=== PATIENT | female | born 1995 | race African-American/Black ===

== ENCOUNTER 2016-09-06 09:09 | Emergency (ER) | payer MEDICAID ==
[~2016-09-06] VITALS: Ht 144.8 cm; Wt 63.5 kg
[~2016-09-06 09:09] MED LIST: ACETAMINOPHEN-1 EAC1 ORAL; AMOXICILLIN500 MG PO; AUGMENTIN 875-1 EAC1 ORAL; BACTRIM-DS1 EA ORAL; CEPHALEXIN500 MG ORAL; CORTISPORIN EAR10 ML OTIC; FERROUS SULFAT325 MG ORAL; IBUPROFEN600 MG ORAL; NKM; NORCO 5-325 TA1 EACH ORAL; NORCO 5-325 TA1 EACH PO; PROVERA10 MG ORAL
--- NOTE | 2016-09-06 09:31 | Emergency Room Report ---
History of Present Illness General Chief Complaint: Lower Back Pain or Injury Source: Patient Present Illness [facility] Patient is a 21-year-old female presented after increased left-sided back pain. The patient reported having intermittent crampy pain to the left upper back and abdomen which radiated to her groin. She denied any vomiting. She denied any fever. Patient reported having some intermittent episodes of constipation she denied any diarrhea. She had not been having fever she denied dysuria or hematuria Allergies: Coded Allergies: No Known Allergies (Unverified , 10/17/14) Patient History Past Medical History: see triage record Last Menstrual Period: 08/2013- On Depo Now: No : 3 Para: 2 Reviewed Nursing Documentation: PMH: Agreed, PSxH: Agreed Nursing Documentation-PMH Past Medical History: No Stated History Review of Systems All Other Systems: negative except mentioned in HPI Physical Exam Vital Signs Date Time Temp Pulse Resp B/P Pulse Ox O2 Delivery O2 Flow Rate FiO2 09/06/16 09:10 98.6 85 16 129/82 98 Room Air General Appearance: well appearing, no apparent distress, alert, GCS 15, non- toxic Head: normocephalic, atraumatic ENT: hearing grossly normal, normal voice Neck: full range of motion, supple Respiratory: no respiratory distress, speaking full sentences Cardiovascular #1: normal inspection, normal peripheral pulses, regular rate, rhythm Gastrointestinal: normal inspection, normal bowel sounds, non tender, soft, no mass Genitourinary: CVA tenderness (L) Musculoskeletal: back normal, no calf tenderness Neurologic: normal inspection, alert, oriented x3, responsive, foreign broadcast specialist III-XII nml as tested, motor strength/tone normal, normal gait Psychiatric: mood/affect normal Skin: no rash Medical Decision Making Diagnostic Impression: Primary Impression: Low back pain ER Course Patient presented for low back pain.Differential diagnosis included but was not limited to herniated disc, cauda equina syndrome, abdominal aortic aneurysm, perforated ulcer, spinal epidural abscess, spinal stenosis, lumbar fracture, metastatic lesion, pyelonephritis. Because of complexity of patient's case laboratory testing was ordered. Patients urine does not appear infected. Patient was given Toradol for pain. was negative. The patient did not appear to require CT imaging at this time.The patient is advised to follow up with primary care doctor in 1-2 days. Patient is advised to return if any worsening condition or if any changes in status that are concerning. Labs Test 09/06/16 09:25 Urine Color Pale yellow Urine Appearance Clear Urine pH 5 (4.5-8.0) Urine Specific [place] 1.020 (1.005-1.035) Urine Protein Negative (NEGATIVE) Urine Glucose (UA) Negative (NEGATIVE) Urine Ketones Negative (NEGATIVE) Urine Occult Blood Negative (NEGATIVE) Urine Nitrite Negative (NEGATIVE) Urine Bilirubin Negative (NEGATIVE) Urine Urobilinogen Normal MG/DL (0.0-1.0) Urine Leukocyte Esterase Negative (NEGATIVE) Urine HCG, Qualitative Negative Urine Opiates Screen Negative (NEGATIVE) Urine Barbiturates Screen Negative (NEGATIVE) Phencyclidine (PCP) Screen Negative (NEGATIVE) Urine Amphetamines Screen Negative (NEGATIVE) Urine Benzodiazepines Screen Negative (NEGATIVE) Urine Cocaine Screen Negative (NEGATIVE) Urine Marijuana (THC) Screen Negative (NEGATIVE) Last Vital Signs Date Time Temp Pulse Resp B/P Pulse Ox O2 Delivery O2 Flow Rate FiO2 09/06/16 09:10 98.6 85 16 129/82 98 Room Air Status: improved Disposition: HOME, SELF-CARE Condition: Stable Lester Hein Sep 06, 2016 09:31
[2016-09-06 09:38] LABS: KETONES,URINE NEGATIVE (NEGATIVE); LEUKOCYTE ESTERASE ,URINE NEGATIVE (NEGATIVE); NITRITE,URINE NEGATIVE (NEGATIVE); PH,URINE 5 (4.5-8.0); PROTEIN,URINE NEGATIVE (NEGATIVE); UROBILINOGEN,URINE NORMAL MG/DL (0.0-1.0)
[2016-09-06 09:39] LABS: APPEARANCE,URINE CLEAR
[2016-09-06] MEDS ORDERED: Ketorolac 60mg Inj IM ONE (10:00)
[2016-09-06 10:30] VITALS: BP 129/82
[2016-09-06] MEDS ORDERED: IBUPROFEN600 MG ORAL (10:30)
[2016-09-06 10:38] VITALS: BP 129/82
== END 2016-09-06 10:38 | disposition home or self-care (01) ==
LOC: EMR 09:34
DX: M54.5 Low back pain (principal)
CPT/HCPCS: 80300; 81003; 81025; 96372; 99283

== ENCOUNTER 2016-10-09 11:22 | Emergency (ER) | payer MEDICAID ==
[~2016-10-09] VITALS: Ht 144.8 cm; Wt 65.3 kg
[2016-10-09 11:52] VITALS: BP 123/76
--- NOTE | 2016-10-09 12:26 | Emergency Room Report ---
History of Present Illness General Chief Complaint: Lower Back Pain or Injury Source: Patient Present Illness HPI The patient is a 21-year-old female presenting for left lower back pain which began 3 days prior. The patient states that the pain is a 5/10 dull ache it is worse with certain movements such as bending over. Pain is intermittent. Patient denies any radiating pain or numbness and tingling. The patient denies any back injury. The patient denies any other symptoms including nausea, vomiting, fever, chills, dysuria, hematuria, vaginal discharge, abdominal pain Allergies: Coded Allergies: No Known Allergies (Unverified , 10/17/14) Patient History Past Medical History: see triage record Pertinent Family History: none Last Menstrual Period: 03/2014 : 3 Para: 2 Reviewed Nursing Documentation: PMH: Agreed, PSxH: Agreed Nursing Documentation-PMH Past Medical History: No Stated History Review of Systems All Other Systems: negative except mentioned in HPI Physical Exam Vital Signs Date Time Temp Pulse Resp B/P Pulse Ox O2 Delivery O2 Flow Rate FiO2 10/09/16 11:28 98.4 107 16 123/76 98 Room Air Sp02 EP Interpretation: reviewed, normal General Appearance: no apparent distress, alert, GCS 15, non-toxic Head: normocephalic, atraumatic Eyes: bilateral eye PERRL, bilateral eye normal inspection ENT: normal pharynx, normal voice, uvula midline, moist mucus membranes, other - R ear cerumen impaction Neck: full range of motion, supple/symm/no masses Respiratory: chest non-tender, lungs clear, normal breath sounds, no wheezing, speaking full sentences Cardiovascular #1: regular rate, rhythm, no edema Musculoskeletal: normal inspection, back normal, gait/station normal, normal range of motion, tender - TTP over L paraspinous muscles Neurologic: alert, oriented x3, responsive, motor strength/tone normal, sensory intact, speech normal Psychiatric: judgement/insight normal, memory normal, mood/affect normal, no suicidal/homicidal ideation Skin: normal color, no rash, warm/dry, well hydrated Lymphatic: no adenopathy Medical Decision Making PA Attestation Dr. Sapp is my supervising physician. Patient management was discussed with my supervising physician Diagnostic Impression: Primary Impression: Muscle strain Additional Impression: Cerumen impaction ER Course The patient is a 21-year-old female presenting for left lower back pain which began 3 days prior. Patient also complains of right ear fullness Ddx considered include but not limited to sprain/strain, fracture, contusion, urinary tract infection, pyelonephritis, renal lithiasis Physical exam: Vitals within normal limits. Afebrile. No apparent distress HEENT: Right ear cerumen impaction only. Otherwise unremarkable. Back: Tenderness to palpation over left paraspinous muscles. No midline tenderness. Full active range of motion. Normal gait. SILT Abd is soft and non tender. Urinalysis unremarkable. No signs of infection. Negative The patient will be discharged home with a prescription for Motrin and Flexeril. Patient will use moist heat at home. The patient is also given a prescription for debrox. ER precautions are given Laboratory Tests Test 10/09/16 12:30 Urine Color Yellow Urine Appearance Clear Urine pH 5 (4.5-8.0) Urine Specific [place] 1.015 (1.005-1.035) Urine Protein Negative (NEGATIVE) Urine Glucose (UA) Negative (NEGATIVE) Urine Ketones Negative (NEGATIVE) Urine Occult Blood Negative (NEGATIVE) Urine Nitrite Negative (NEGATIVE) Urine Bilirubin Negative (NEGATIVE) Urine Urobilinogen Normal MG/DL (0.0-1.0) Urine Leukocyte Esterase Negative (NEGATIVE) Urine HCG, Qualitative Negative Lab Results Impression unremarkable Last Vital Signs Date Time Temp Pulse Resp B/P Pulse Ox O2 Delivery O2 Flow Rate FiO2 10/09/16 11:52 98.4 72 16 123/76 98 Room Air Status: improved Disposition: HOME, SELF-CARE Condition: Improved Scripts Carbamide Peroxide (DEBROX) 15 Ml Drops 10 DROP RIGHT EAR TWICE A DAY for 4 Days, ML 0 Refills Prov: JASMYNE LAURA P.A. 10/09/16 Cyclobenzaprine Hcl* (FLEXERIL*) 10 Mg Tablet 10 MG ORAL THREE TIMES A DAY, #15 TAB Prov: ARCHIEANANGIEY P.A. 10/09/16 Ibuprofen* (MOTRIN*) 600 Mg Tablet 600 MG ORAL Q8H Y for For Pain, #30 TAB 0 Refills Prov: TERLILIBETHANJASMYNE P.A. 10/09/16 Referrals: NOT CHOSEN [facility]/,REFERRING (PCP) JASMYNE LAURA P.AGail Oct 09, 2016 12:26
[2016-10-09 12:50] LABS: APPEARANCE,URINE CLEAR; KETONES,URINE NEGATIVE (NEGATIVE); LEUKOCYTE ESTERASE ,URINE NEGATIVE (NEGATIVE); NITRITE,URINE NEGATIVE (NEGATIVE); PH,URINE 5 (4.5-8.0); PROTEIN,URINE NEGATIVE (NEGATIVE); UROBILINOGEN,URINE NORMAL MG/DL (0.0-1.0)
[2016-10-09] MEDS ORDERED: IBUPROFEN600 MG ORAL (13:04)
[2016-10-09] MEDS ORDERED: CYCLOBENZAPRINE10 MG ORAL (13:04)
[2016-10-09] MEDS ORDERED: DEBROX15 M1 RIGHT EAR (13:09)
[2016-10-09 13:15] VITALS: BP 126/76
[2016-10-09 13:17] VITALS: BP 126/76
== END 2016-10-09 13:18 | disposition home or self-care (01) ==
LOC: EMR 12:00
DX: T14.8 Other injury of unspecified body region (principal); H61.20 Impacted cerumen, unspecified ear; M54.5 Low back pain
CPT/HCPCS: 81003; 81025; 99284

== ENCOUNTER 2017-05-12 15:33 | Emergency (ER) | payer MEDICAID ==
[~2017-05-12] VITALS: Ht 144.8 cm; Wt 65.3 kg
[~2017-05-12 15:33] MED LIST changes: +CYCLOBENZAPRINE10 MG ORAL; +DEBROX15 M1 RIGHT EAR
[2017-05-12 15:38] VITALS: BP 132/76
--- NOTE | 2017-05-12 15:52 | Emergency Room Report ---
History of Present Illness General Chief Complaint: Vaginal Source: Patient Present Illness HPI 21 YO Female presents to the ED c/o vaginal bleeding: x 57 days reports going through 3 super absorbency pads daily. pt. reports hx of previous prolonged vaginal bleeding normally lasting 10-12 days. pt. states this is the longest length of consistent bleeding. denies OCP's. reports stopped Depo shot in August. denies abdominal pain, N/V/D/F, Chills, weakness. denies hx of fibroids , dyspareunia or std's. She reports requiring provera in the past to control heavy menstrual cycles. Denies CP, Palpitations, LOC, AMS, dizziness, Changes in Vision, Sensation, paresthesias, or a sudden severe headache. Allergies: Coded Allergies: No Known Allergies (Unverified , 10/17/14) Patient History Past Medical History: see triage record Past Surgical History: none Pertinent Family History: none Last Menstrual Period: on cycle now Now: No : 3 Para: 2 Immunizations: UTD Reviewed Nursing Documentation: PMH: Agreed, PSxH: Agreed Nursing Documentation-PMH Past Medical History: No Stated History Review of Systems All Other Systems: negative except mentioned in HPI Physical Exam Vital Signs Date Time Temp Pulse Resp B/P (MAP) Pulse Ox O2 Delivery O2 Flow Rate FiO2 05/12/17 15:38 99.0 100 20 132/76 99 Room Air Sp02 EP Interpretation: reviewed, normal General Appearance: no apparent distress, alert, GCS 15, non-toxic Head: normocephalic, atraumatic Eyes: bilateral eye normal inspection, bilateral eye PERRL ENT: hearing grossly normal, normal voice Neck: full range of motion, supple/symm/no masses Respiratory: chest non-tender, lungs clear, normal breath sounds, speaking full sentences Cardiovascular #1: regular rate, rhythm, tachycardia - 100 BPM Gastrointestinal: normal bowel sounds, non tender, soft, no guarding, no rebound Rectal: deferred Genitourinary: normal inspection, no CVA tenderness Musculoskeletal: back normal, gait/station normal, normal range of motion, non- tender, no calf tenderness Neurologic: alert, oriented x3, responsive, motor strength/tone normal, sensory intact, speech normal Psychiatric: judgement/insight normal, memory normal, mood/affect normal Skin: normal color, no rash, warm/dry, well hydrated Medical Decision Making PA Attestation Dr. Hein is my supervising Physician whom patient management has been discussed with. Diagnostic Impression: Primary Impression: Dysfunctional uterine bleeding ER Course 21 YO Female presents to the ED c/o vaginal bleeding: x 57 days reports going through 3 super absorbency pads daily. pt. reports hx of previous prolonged vaginal bleeding normally lasting 10-12 days. pt. states this is the longest length of consistent bleeding. denies OCP's. reports stopped Depo shot in August. denies abdominal pain, N/V/D/F, Chills, weakness. denies hx of fibroids , dyspareunia or std's. She reports requiring provera in the past to control heavy menstrual cycles. Denies CP, Palpitations, LOC, AMS, dizziness, Changes in Vision, Sensation, paresthesias, or a sudden severe headache. Ddx considered but are not limited to: Fibroid, ectopic , Malignancy, Spontaneous , , DUB Vital signs: Tachy at 100bpm, otherwise VS are WNL, pt. is afebrile Pelvic Exam: two clots noted in the vaginal vault, os is closed. H&PE are most consistent with: DUB will do labs to r/o need for transfusion and assess for anemia, abdominal and Pelvic exam are benign and do not warrant emergent imaging at this time. ORDERS: -CBC: mild anemia no evidence of acute hemorrhage -Type and Screen: B POSITIVE -Urine Hcg: negative -PT/PTT: WNL ED INTERVENTIONS: -1 Liter NS Bolus - D/w pt. lab results and need for OBGYN Follow up , will start pt. on oral contraceptives. gave pt. ED return precautions. DISCHARGE: At this time pt. is stable for d/c to home. Will provide printed patient care instructions, and any necessary prescriptions. Care plan and follow up instructions have been discussed with the patient prior to discharge. Labs Test 05/12/17 16:00 White Blood Count 7.1 K/UL (4.8-10.8) Red Blood Count 4.03 M/UL (4.20-5.40) Hemoglobin 11.5 G/DL (12.0-16.0) Hematocrit 33.6 % (37.0-47.0) Mean Corpuscular Volume 83 FL (80-99) Mean Corpuscular Hemoglobin 28.6 PG (27.0-31.0) Mean Corpuscular Hemoglobin Concent 34.4 G/DL (32.0-36.0) Red Cell Distribution Width 13.4 % (11.6-14.8) Platelet Count 316 K/UL (150-450) Mean Platelet Volume 6.3 FL (6.5-10.1) Neutrophils (%) (Auto) 43.9 % (45.0-75.0) Lymphocytes (%) (Auto) 45.7 % (20.0-45.0) Monocytes (%) (Auto) 7.9 % (1.0-10.0) Eosinophils (%) (Auto) 1.3 % (0.0-3.0) Basophils (%) (Auto) 1.2 % (0.0-2.0) Prothrombin Time 9.7 SEC (9.30-11.50) Prothromb Time International Ratio 0.9 (0.9-1.1) Activated Partial Thromboplast Time 26 SEC (23-33) Urine HCG, Qualitative Negative Sodium Level 142 mEQ/L (135-145) Potassium Level 3.9 mEQ/L (3.4-4.9) Chloride Level 102 mEQ/L (98-107) Carbon Dioxide Level 27 mEQ/L (20-30) Anion Gap 13 (5-15) Blood Urea Nitrogen 8 mg/dL (7-23) Creatinine 0.8 mg/dL (0.5-0.9) Estimat Glomerular Filtration Rate > 60 mL/min (>60) Glucose Level 101 mg/dL (74-106) Calcium Level 9.4 mg/dL (8.6-10.2) Total Bilirubin 1.0 mg/dL (0.0-1.2) Aspartate Amino Transf (AST/SGOT) 24 U/L (5-40) Alanine Aminotransferase (ALT/SGPT) 24 U/L (3-33) Alkaline Phosphatase 79 U/L (35-104) Total Protein 7.5 g/dL (6.6-8.7) Albumin 4.7 g/dL (3.5-5.2) Globulin 2.8 g/dL Albumin/Globulin Ratio 1.6 (1.0-2.7) Last Vital Signs Date Time Temp Pulse Resp B/P (MAP) Pulse Ox O2 Delivery O2 Flow Rate FiO2 05/12/17 15:38 99.0 100 20 132/76 99 Room Air Disposition: HOME, SELF-CARE Condition: Stable Scripts Nore[place] A-Et Estra/Fe Fumarate (MICROGESTIN FE 1.5-30 TAB) 1 Each Tablet 1 EACH PO DAILY for 30 Days, #1 TAB Prov: Jazmin Mancera 05/12/17 Patient Instructions: Dysfunctional Uterine Bleeding Additional Instructions: Take medications as directed. Follow up with a Primary Care Provider in 3-5 days, even if your symptoms have resolved. OBGYN EVALUATION RECOMMENDED --Please review list of primary care clinics, if you do not already have a primary care provider Return sooner to ED if new symptoms occur, or current symptoms become worse. - Please note that this Emergency Department Report was dictated using [employer] labor delivery technology software, occasionally this can lead to erroneous entry secondary to interpretation by the dictation equipment. Jazmin Mancera May 12, 2017 15:52
[2017-05-12 16:33] LABS: BASOPHILS % (AUTO) 1.2 % (0.0-2.0); EOSINOPHILS % (AUTO) 1.3 % (0.0-3.0); LYMPHOCYTES % (AUTO) 45.7 % (20.0-45.0); MEAN CORPUSCULAR HEMOGLOBIN 28.6 PG (27.0-31.0); MEAN CORPUSCULAR HGB CONC 34.4 G/DL (32.0-36.0); MEAN CORPUSCULAR VOLUME 83 FL (80-99); MEAN PLATELET VOLUME 6.3 FL (6.5-10.1); MONOCYTES % (AUTO) 7.9 % (1.0-10.0); NEUTROPHILS % (AUTO) 43.9 % (45.0-75.0); PLATELET COUNT 316 K/UL (150-450); RED BLOOD COUNT 4.03 M/UL (4.20-5.40); RED CELL DISTRIBUTION WIDTH 13.4 % (11.6-14.8); WHITE BLOOD COUNT 7.1 K/UL (4.8-10.8)
[2017-05-12 16:40] LABS: INR 0.9 (0.9-1.1); PROTHROMBIN TIME 9.7 SEC (9.30-11.50)
[2017-05-12 16:50] LABS: ALANINE AMINOTRANSFERASE 24 U/L (3-33); ALBUMIN/GLOBULIN RATIO 1.6 (1.0-2.7); ANION GAP 13 (5-15); ASPARTATE AMINO TRANSFERASE 24 U/L (5-40); CALCIUM 9.4 mg/dL (8.6-10.2); CARBON DIOXIDE 27 mEQ/L (20-30); CHLORIDE 102 mEQ/L (98-107); CREATININE 0.8 mg/dL (0.5-0.9); GLOMERULAR FILTRATION RATE > 60 mL/min (>60); HEMOLYSIS 0; POTASSIUM 3.9 mEQ/L (3.4-4.9); SODIUM 142 mEQ/L (135-145); TOTAL PROTEIN 7.5 g/dL (6.6-8.7)
[2017-05-12] MEDS ORDERED: MICROGESTIN FE1 EACH PO (17:29)
[2017-05-12 17:35] VITALS: BP 110/69
== END 2017-05-12 17:35 | disposition home or self-care (01) ==
LOC: EMR 16:25
DX: N93.9 Abnormal uterine and vaginal bleeding, unspecified (principal)
CPT/HCPCS: 36415; 80053; 81025; 85025; 85610; 85730; 86850; 86900; 86901; 96360; 99284